=== PATIENT | male | born 1975 | race Caucasian/White ===

== ENCOUNTER 2016-08-27 16:21 | Emergency (ER) | payer MEDICAID, OTHER ==
[~2016-08-27] VITALS: Ht 165.1 cm; Wt 100.0 kg
[~2016-08-27 16:21] MED LIST: CYCL-319 PO; HYDR-3498 PO; NAPR-260 PO
[2016-08-27 16:24] VITALS: Ht 165.1 cm; Wt 100.0 kg
[2016-08-27] MEDS ORDERED: IBUPROFEN 800 MG TAB PO ONE (17:30)
[2016-08-27] MEDS ORDERED: DIPHTH/TET/ACEL PERTUSS (ADULT) 0.5 ML VIAL IM* ONE (17:30)
[2016-08-27] MEDS ORDERED: IBUP-1542 PO (17:57)
--- NOTE | 2016-08-27 18:05 | ERD ---
ER Documentation Chief Complaint Date/Time DATE: 08/27/16 TIME: 18:00 Chief Complaint SJ FOOT BLISTERS HPI 41-year-old male patient with no significant past medical history presents to the ED complaining of bilateral foot blisters that started in the last few days. States that he went on a long hike yesterday that lasted for 12 hours and was also driving with the heel of his feet. Reports that he was wearing boots. Denies any weakness, numbness or tingling, loss of sensation, loss of range of motion, fever, chills. Denies any trauma or injuries. States that he still able to ambulate. ROS All systems reviewed and are negative except as per history of present illness. Medications Home Meds Active Scripts Ibuprofen* (Motrin*) 600 Mg Tab, 600 MG PO Q6, #30 TAB Prov:PERFECTO MEYER PA-C 08/27/16 Naproxen* (Naprosyn*) 500 Mg Tablet, 500 MG PO BID Y for PAIN AND/OR INFLAMMATION, #30 TAB Prov:FRANCISCA XIONG PA-C 09/29/15 Cyclobenzaprine Hcl* (Cyclobenzaprine Hcl*) 10 Mg Tablet, 10 MG PO TID, #15 TAB Prov:FRANCISCA XIONG PA-C 09/29/15 Hydrocodone Bit-Acetaminophen* ([place]*) 5-325 Mg Tab, 1 TAB PO Q6 Y for PAIN, # 7 TAB Prov:FRANCISCA XIONG PA-C 09/29/15 Allergies Allergies: Coded Allergies: No Known Allergy (Unverified , 09/29/15) PMhx/Soc History of Surgery: No Anesthesia Reaction: No Hx Neurological Disorder: No Hx Respiratory Disorders: No Hx Cardiac Disorders: No Hx Psychiatric Problems: No Hx Miscellaneous Medical Probl: No Hx Alcohol Use: Yes (5 DAYS A WK) Hx Substance Use: No Hx Tobacco Use: Yes (2 PKS/DAY) Smoking Status: Current every day smoker Physical Exam Vitals Vital Signs Date Time Temp Pulse Resp B/P Pulse Ox O2 Delivery O2 Flow Rate FiO2 08/27/16 16:24 98.2 101 20 125/81 99 Physical Exam Const: [id number], well-nourished. In no acute distress. Head: Atraumatic, normocephalic Eyes: Normal Conjunctiva without injection ENT: Normal external ear, nose and mouth. Neck: Full range of motion. No meningismus. Resp: Clear to auscultation bilaterally. No wheezing, rhonchi, rales, or crackles. No accessory muscle use. No retractions. Cardio: Regular rate and rhythm, no murmurs Skin: No petechiae or rashes Back: No midline tenderness. No CVA tenderness. Ext: No cyanosis, or edema. Cap refill less than 2 seconds. Distal pulses intact bilaterally. Bilateral plantar blisters noted. No erythema noted. No fluctuance noted. No bleeding noted. No purulent discharge. Neur: Awake and alert. Normal gait and coordination. Muscle strength 5/5. Sensation intact bilaterally. Psych: Normal Mood and Affect Results 24 hrs Current Medications Medications (Trade) Dose Ordered Sig/Amanda Route PRN Reason Start Time Stop Time Status Last Admin Dose Admin Ibuprofen (Motrin) 800 mg ONCE ONCE PO 08/27/16 17:30 08/27/16 17:31 DC 08/27/16 17:47 Diphtheria/ Tetanus/Acell Pertussis (Adacel) 0.5 ml ONCE ONCE IM* 08/27/16 17:30 08/27/16 17:31 DC 08/27/16 17:47 Procedures/MDM This is a 41-year-old male patient with no significant past medical history presents to the ED complaining of bilateral foot blisters that started 2 days ago. Patient is afebrile and nontoxic-appearing. Patient has normal vital signs. Patient's blisters were cleaned here in the ED. this case discussed with my supervising physician, Dr. Mancia who agreed with the management and discharge plan. Patient was updated with his tetanus vaccine. Patient was also given ibuprofen here in the ED with improvement of his symptoms. Patient likely has friction blisters. Low suspicion for scabies, SJS/TEN, erythema multiforme, sepsis, cellulitis, necrotizing fascitis, gangrene, meningococcemia or other emergent conditions. Patient's extremity symptoms have stabilized while they have been evaluated in the department and are appropriate for outpatient follow up. No evidence of fractures, dislocations, compartment syndrome, neurologic injury, vascular injury, open joint, open fracture, tendon laceration, septic arthritis, osteomyelitis, DVT, foreign body, or other emergent conditions. Discharge medications: Ibuprofen Follow up with primary care physician in 1-2 days. Instructed patient to return to the ED sooner for any worsening symptoms. Patient's questions were answered. Patient understood and agreed with discharge plan. Patient discharged stable. Departure Diagnosis: Primary Impression: Friction blister of the foot Encounter type: initial encounter Laterality: unspecified laterality Qualified Code: S90.829A - Friction blister of the foot, unspecified laterality , initial encounter Condition: Stable Patient Instructions: Blister Referrals: [facility] YOU HAVE RECEIVED A MEDICAL SCREENING EXAM AND THE RESULTS INDICATE THAT YOU DO NOT HAVE A CONDITION THAT REQUIRES URGENT TREATMENT IN THE EMERGENCY DEPARTMENT. FURTHER EVALUATION AND TREATMENT OF YOUR CONDITION CAN WAIT UNTIL YOU ARE SEEN IN YOUR DOCTORS OFFICE WITHIN THE NEXT 1-2 DAYS. IT IS YOUR RESPONSIBILITY TO MAKE AN APPOINTMENT FOR FOLOW-UP CARE. IF YOU HAVE A PRIMARY DOCTOR --you should call your primary doctor and schedule an appointment IF YOU DO NOT HAVE A PRIMARY DOCTOR YOU CAN CALL OUR PHYSICIAN REFERRAL HOTLINE AT IF YOU CAN NOT AFFORD TO SEE A PHYSICIAN YOU CAN CHOSE FROM THE FOLLOWING [facility] [address] [facility] [address] [facility]. [facility] [address] [facility] [address] [facility] [address] [facility]. [facility]. [address] [facility] [facility] YOU HAVE RECEIVED A MEDICAL SCREENING EXAM AND THE RESULTS INDICATE THAT YOU DO NOT HAVE A CONDITION THAT REQUIRES URGENT TREATMENT IN THE EMERGENCY DEPARTMENT. FURTHER EVALUATION AND TREATMENT OF YOUR CONDITION CAN WAIT UNTIL YOU ARE SEEN IN YOUR DOCTORS OFFICE WITHIN THE NEXT 1-2 DAYS. IT IS YOUR RESPONSIBILITY TO MAKE AN APPOINTMENT FOR FOLOW-UP CARE. IF YOU HAVE A PRIMARY DOCTOR --you should call your primary doctor and schedule and appointment IF YOU DO NOT HAVE A PRIMARY DOCTOR YOU CAN CALL OUR PHYSICIAN REFERRAL HOTLINE AT . IF YOU CAN NOT AFFORD TO SEE A PHYSICIAN YOU CAN CHOSE FROM THE FOLLOWING [facility] [address] [place] [address] [facility] [address] [place] [address] [facility] [address] [place] [address] [facility] Additional Instructions: Call your primary care doctor TOMORROW for an appointment during the next 2-3 days.See the doctor sooner or return here if your condition worsens before your appointment time - fever, increased redness, pus/discharge, signs of infection. PERFECTO MEYER PA-C Aug 27, 2016 18:05 PERFECTO MEYER PA-C Aug 27, 2016 18:05
[2016-08-27 18:47] VITALS: BP 122/77; PULSE 72; RESP 20; TEMP 98.6
== END 2016-08-27 18:48 | disposition home or self-care (01) ==
LOC: FTE 16:21
DX: S90.821A Blister (nonthermal), right foot, initial encounter (principal); F17.210 Nicotine dependence, cigarettes, uncomplicated; S90.822A Blister (nonthermal), left foot, initial encounter; X58.XXXA Exposure to other specified factors, initial encounter; Y92.9 Unspecified place or not applicable; Z23 Encounter for immunization
CPT/HCPCS: 90715; Z7610; 90471